=== PATIENT | male | born 1970 | race Hispanic/Latino ===

== ENCOUNTER 2024-10-24 15:05 | Emergency (ER) | payer OTHER ==
[2024-10-24] MEDS ORDERED: ONDANSETRON 4 MG/2 ML VIAL ONE (15:33)
[2024-10-24] MEDS ORDERED: FAMOTIDINE 20 MG/2 ML VIAL IV ONE (15:33)
[2024-10-24] MEDS ORDERED: NA CHLORIDE 0.9% 1,000 ML ONE (15:33)
[2024-10-24 15:50] LABS: Absolute Lymphocytes (CBC) 0.3 K/uL (0.7-4.9); Absolute Monocytes 0.3 K/uL (0.1-1.3); Absolute Neutrophil 7.8 K/uL (1.8-8.0); Basophils % 0.2 % (0-1.3); Eosinophils % 0.1 % (0-4.4); Hematocrit 45.8 % (39.6-49.0); Lymphocytes % 3.3 % (15.3-44.8); MCH 30.7 pg (27.0-35.0); MCV 87.9 fL (80-100); MPV 7.4 fL (7.6-11.3); Monocytes % 3.9 % (3.3-12.3); Neutrophils % 92.5 % (41.7-73.7); Platelets 228 thou/uL (152-406); RBC Red Blood Cell Count 5.21 M/uL (4.33-5.43); Red Cell Distribution Width 13.6 % (12.1-15.2)
[2024-10-24 16:02] LABS: Albumin 4.1 g/dL (3.4-5.0); Albumin/Globulin Ratio 1.1 (1.1-1.8); Bilirubin Total 2.8 mg/dL (0.2-1.0); Globulin 3.6 g/dL (2.3-3.5); Protein, Total 7.7 g/dL (6.4-8.2); Troponin High Sensitivity 5.9 pg/mL (<58.9)
[2024-10-24 16:50] LABS: Platelet Estimate ADEQ; White Blood Cell Scan OK (OK)
[2024-10-24 16:51] LABS: Blood Morphology Comment NOT SEEN (NOT SEEN)
--- NOTE | 2024-10-24 16:52 | RAD REPORT ---
EXAMINATION: Abdomen Pelvis W Contrast CLINICAL INDICATION: Male, 54 years old.ABD PAIN TECHNIQUE: CT abdomen and pelvis was performed, after the administration of IV contrast, as per [facility]. Axial, sagittal and coronal reconstructions were obtained. One or more of the following dose reduction techniques were used: Automated exposure control, adjustment of the mA and/o r kV according to patient size, and/or iterative reconstruction. Unless otherwise specified, incidental findings do not require dedicated imaging follow-up. [id number]. COMPARISON: No prior exam. FINDINGS: LOWER CHEST: No acute process identified.No significant pericardial effusion. Mild circumferential th ickening of the distal esophagus which could reflect esophagitis. UPPER GI: No significant abnormality. LIVER: Benign appearing low density liver lesions. No suspicious mass. GALLBLADDER/BILE DUCTS: Cholelithiasis without CT evidence of acute cholecystitis.? PANCREAS: No mass, ductal dilation, or [place]-pancreatic fluid. SPLEEN: Unremarkable. ADRENALS: No adrenal masses. KIDNEYS AND URETERS: No hydronephrosis.No suspicious renal mass.No renal calculi. ABDOMINAL AORTA AND OTHER VESSELS: Normal caliber aorta and IVC. PERITONEUM: No abnormal free fluid. No free air. LYMPH NODES: No pathologic lymphadenopathy. ABDOMINAL WALL: Fat containing inguinal hernias. SMALL BOWEL/COLON: Fluid filled segments of small bowel noted. Long segment small bowel wall thickeni ng and hyperenhancement with interspersed fluid.Normal appendix. URINARY BLADDER: Underdistended but grossly unremarkable. REPRODUCTIVE ORGANS: No pathologic process. MUSCULOSKELETAL: Multilevel degenerative changes in the spine. No acute fracture. ADDITIONAL FINDINGS: None. IMPRESSION: Long segment of mild small bowel wall thickening and hyperenhancement without significant mesenteric edema concerning for a mild enteritis with differential to include infectious and inflammatory etiologies. No appendicitis. Cholelithiasis. No CT evidence of acute cholecystitis.
[2024-10-24] MEDS ORDERED: MORPHINE 4 MG/ML SYR ONE (17:00)
--- NOTE | 2024-10-24 17:56 | EDPHYS ---
Physician Documentation [facility] Name: Lake Fenton Age: 54 yrs Sex: Male : 1970 Arrival Date: 10/24/2024 Time: 15:05 Bed Treatment Private MD: ED Physician Chato Snyder HPI: 10/24 16:49 This 54 yrs old Male presents to ER via Ambulatory with complaints of ms3 Abdominal Pain, Vomiting. 16:49 54-year-old male with past medical history of GERD presents to the emergency department ms3 for GERD "flare" that began at 4 AM. Patient states his pain is located in the epigastric region. Patient endorses nausea, vomiting, diaphoresis. Patient denies chest pain, shortness of breath, headache. Patient states his discomfort is a 7/10.. Historical: - Allergies: 15:45 No Known Allergies; iw - Home Meds: 15:45 Pepcid 40 mg Oral tablet [Active]; iw - PMHx: 15:45 GERD; iw - Immunization history:: Adult Immunizations not up to date. - Infectious Disease History:: Denies. - Social history:: Smoking status: Patient denies any tobacco usage or history of. ROS: 16:49 Constitutional: Negative for fever, and chills. Cardiovascular: Negative for chest ms3 pain, and palpitations. Respiratory: Negative for shortness of breath, cough, wheezing, and pleuritic chest pain, 16:49 MS/Extremity: Negative for injury and deformity, Skin: Negative for injury, rash, and discoloration, 16:49 Abdomen/GI: Positive for abdominal pain, nausea and vomiting, Exam: 16:49 Constitutional: This is a well developed, well nourished patient who is awake, alert, ms3 and in no acute distress. Cardiovascular: Regular rate and rhythm with a normal S1 and S2. No gallops, murmurs, or rubs. Normal PMI, no JVD. No pulse deficits. Respiratory: Lungs have equal breath sounds bilaterally, clear to auscultation and percussion. No rales, rhonchi or wheezes noted. No increased work of breathing, no retractions or nasal flaring. 16:49 Abdomen/GI: Inspection: abdomen appears normal, Bowel sounds: normal, Palpation: moderate abdominal tenderness, 16:59 ECG was reviewed by the Attending Physician. ms3 Vital Signs: 15:45 BP 148 / 81; Pulse 84; Resp 16; Temp 98.5; Pulse Ox 100% on R/A; Weight 79.38 kg; iw Height 5 ft. 8 in. ; Pain 7/10; 15:45 Body Mass Index 26.61 (79.38 kg, 172.72 cm) iw 15:45 Pain Scale: Adult iw MDM: 15:20 Medical Screening Exam initiated ms3 16:49 Differential diagnosis: Nonspecific abd pain, gastritis, cholecystitis, pancreatitis, ms3 viral gastroenteritis. 19:14 Data reviewed: vital signs, nurses notes, lab test result(s), EKG, radiologic studies, ms3 and as a result, I will discharge patient. I considered the following discharge prescriptions or medication management in the emergency department Medications were administered in the Emergency Department. See MAR. Independent interpretation of the following test(s) in the Emergency Department EKG: See my EKG interpretation above. Counseling: I had a detailed discussion with the patient and/or guardian regarding the historical points, exam findings, and any diagnostic results supporting the discharge/admit diagnosis, lab results, radiology results, the need for outpatient follow up, to return to the emergency department if symptoms worsen or persist or if there are any questions or concerns that arise at home. Special discussion: Based on the patient's Hx, exam, and Dx evaluation, there is no indication for emergent surgery or inpatient Tx. It is understood by the patient/guardian that if the Sx's persist or worsen they need to return immediately for re-evaluation. ED course: Discussed labs and imaging with patient. Discussed obtaining ultrasound with patient and his family. Patient declines ultrasound at this time. Patient to follow-up with primary care physician in 2 to 3 days. Patient understands and agrees with plan. All questions were answered. Return precautions discussed include worsening symptoms, or any other concerns.. 10/24 15:20 Order name: CBC with Diff; Complete Time: 17:00 ms3 10/24 15:20 Order name: CMP; Complete Time: 16:48 ms3 10/24 15:20 Order name: Lipase; Complete Time: 16:48 ms3 10/24 15:20 Order name: Troponin High Sensitivity; Complete Time: 16:48 ms3 10/24 16:52 Order name: CBC Smear Scan; Complete Time: 17:00 EDMS 10/24 15:20 Order name: CT Abd/Pelvis - IV Contrast Only; Complete Time: 17:00 ms3 10/24 15:20 Order name: EKG; Complete Time: 15:21 ms3 10/24 15:20 Order name: IV Saline Lock; Complete Time: 15:38 ms3 10/24 15:20 Order name: Labs collected and sent; Complete Time: 15:38 ms3 10/24 15:20 Order name: EKG - Nurse/Tech; Complete Time: 15:46 ms3 EC:59 Rate is 82 beats/min. Rhythm is regular. QRS [place] is Normal. [place] interval is normal. QRS ms3 interval is normal. Clinical impression: Normal ECG. Interpreted by me. Reviewed by me. Administered Medications: 15:38 Drug: Famotidine IVP 20 mg IVP once; dilute with 10 mL 0.9% NaCl; give over 2 minutes iw Route: IVP; Site: left antecubital; 15:38 Drug: Ondansetron IVP 4 mg IVP once; over 2 minutes Route: IVP; Site: left antecubital; iw 15:38 Drug: NS 0.9% IV 1000 ml IV at 1 bolus Per protocol; to be given as a bolus over 60 iw minutes Route: IV; Rate: 1 bolus; Site: left antecubital; 17:00 Follow up: IV Status: Completed infusion iw 17:08 Drug: morphine IVP or IV 4 mg IVP once over 4 mins Route: IVP; Infused Over: 4 mins; iw Site: left antecubital; 17:30 Follow up: Response: No adverse reaction; Pain is decreased iw Disposition Summary: 10/24/24 17:56 Discharge Ordered Notes: Location: Home ms3 Condition: Stable ms3 Diagnosis - Elevated total bilirubin ms3 - Upper abdominal pain, unspecified ms3 Followup: ms3 - With: Private Physician - When: 2 - 3 days - Reason: Recheck today's complaints Discharge Instructions: - Discharge Summary Sheet ms3 - Abdominal Pain, Adult ms3 Forms: - Medication Reconciliation Form ms3 - Antibiotic Education ms3 - Prescription Opioid Use ms3 - Patient Portal Instructions ms3 - Leadership Thank You Letter ms3 Prescriptions: - ondansetron 4 mg Oral Tablet,disintegrating - take 1 tablet ORAL route every 8 hours as needed for nausea and vomiting; 15 ms3 tablet; Refills: 0, Product Selection Permitted - Pepcid 20 mg Oral Tablet - take 1 tablet ORAL route every 12 hours for 5 days; 10 tablet; Refills: 0, ms3 Product Selection Permitted Signatures: Melissa Good, RN RN iw Chato Snyder, DO ms3
--- NOTE | 2024-10-24 17:56 | ER ---
Nurse's Notes [facility] Name: [place] Fenton Age: 54 yrs Sex: Male : 1970 Arrival Date: 10/24/2024 Time: 15:05 Bed Treatment Private MD: Diagnosis: Elevated total bilirubin;Upper abdominal pain, unspecified Presentation: 10/24 15:28 Chief complaint: Patient states: n/v, abd pain since this morning. Coronavirus screen: iw At this time, the client does not indicate any symptoms associated with coronavirus-19. Ebola Screen: No symptoms or risks identified at this time. Initial Sepsis Screen: Does the patient meet any 2 criteria? No. Patient's initial sepsis screen is negative. Does the patient have a suspected source of infection? No. Patient's initial sepsis screen is negative. Risk Assessment: Do you want to hurt yourself or someone else? Patient reports no desire to harm self or others. Onset of symptoms was October 24, 2024. 15:28 Method Of Arrival: Ambulatory iw 15:28 Acuity: VON 3 iw Triage Assessment: 15:30 General: Appears in no apparent distress. Behavior is calm, cooperative. GI: Abdomen is iw non-distended. Historical: - Allergies: 15:45 No Known Allergies; iw - Home Meds: 15:45 Pepcid 40 mg Oral tablet [Active]; iw - PMHx: 15:45 GERD; iw - Immunization history:: Adult Immunizations not up to date. - Infectious Disease History:: Denies. - Social history:: Smoking status: Patient denies any tobacco usage or history of. Screenin:20 [facility] ED Fall Risk Assessment (Adult) History of falling in the last 3 months, iw including since admission No falls in past 3 months (0 pts) Confusion or Disorientation No (0 pts) Intoxicated or Sedated No (0 pts) Impaired Gait No (0 pts) Mobility Assist Device Used No (0 pt) Altered Elimination No (0 pt) Score/Fall Risk Level 0 - 2 = Low Risk Oriented to surroundings, Maintained a safe environment. Abuse screen: Denies threats or abuse. Denies injuries from another. Nutritional screening: No deficits noted. Tuberculosis screening: No symptoms or risk factors identified. Assessment: 15:30 General: Appears in no apparent distress. uncomfortable. Pain: Complains of pain in iw abdomen. Neuro: Level of Consciousness is awake, alert, obeys commands, Oriented to person, place, situation. Respiratory: Respiratory effort is even, unlabored, Respiratory pattern is regular, symmetrical. GI: Abdomen is non-distended, Abd is soft X 4 quads. Vital Signs: 15:45 BP 148 / 81; Pulse 84; Resp 16; Temp 98.5; Pulse Ox 100% on R/A; Weight 79.38 kg; iw Height 5 ft. 8 in. ; Pain 7/10; 15:45 Body Mass Index 26.61 (79.38 kg, 172.72 cm) iw 15:45 Pain Scale: Adult iw ED Course: 15:08 Patient arrived in ED. im 15:08 Chato Snyder DO is Attending Physician. ms3 15:29 Triage completed. iw 15:29 Initial lab(s) drawn, by ED staff, sent to lab. Inserted saline lock: 20 gauge in left iw antecubital area, using aseptic technique. Blood collected. Flushed with 10 mL NS. 15:38 Melissa Layton, RN is Primary Nurse. iw 15:46 Troponin High Sensitivity Sent. bc6 15:46 CBC with Diff Sent. bc6 15:46 CMP Sent. bc6 15:46 Lipase Sent. bc6 16:40 CT Abd/Pelvis - IV Contrast Only In Process Unspecified. EDMS Administered Medications: 15:38 Drug: Famotidine IVP 20 mg IVP once; dilute with 10 mL 0.9% NaCl; give over 2 minutes iw Route: IVP; Site: left antecubital; 15:38 Drug: Ondansetron IVP 4 mg IVP once; over 2 minutes Route: IVP; Site: left antecubital; iw 15:38 Drug: NS 0.9% IV 1000 ml IV at 1 bolus Per protocol; to be given as a bolus over 60 iw minutes Route: IV; Rate: 1 bolus; Site: left antecubital; 17:00 Follow up: IV Status: Completed infusion iw 17:08 Drug: morphine IVP or IV 4 mg IVP once over 4 mins Route: IVP; Infused Over: 4 mins; iw Site: left antecubital; 17:30 Follow up: Response: No adverse reaction; Pain is decreased iw Outcome: 17:56 Discharge ordered by . ms3 18:23 Discharged to home ambulatory, iw 18:23 Condition: good 18:23 Discharge instructions given to patient, family, Instructed on discharge instructions, follow up and referral plans. Demonstrated understanding of instructions, follow-up care, medications, Prescriptions given X 2, 18:24 Patient left the ED. iw Signatures: Dispatcher [employer] Melissa Israel RN RN iw Sims, Marcus, DO DO ms3 Bee Cardona bc6 Haley Loco
[2024-10-25 07:02] VITALS: BP 148/81; TEMP 98.5; O2SAT 100
--- NOTE | 2024-10-25 12:35 | EKG ---
Test Date: 2024-10-24 Test Time: 15:37:13 Records Management Technician: NICOLE MEASUREMENT RESULTS: Intervals: Rate: 82 FL: 124 QRSD: 88 QT: 398 QTc: 464 [place]: P: 68 FL: 124 QRS: 60 T: 38 INTERPRETIVE STATEMENTS: Normal sinus rhythm Normal ECG No previous ECG available for comparison Electronically Signed On 10-25-24 12:34:19 CDT by Carrington Fuentes
== END 2024-10-24 18:24 | disposition home or self-care (01) ==
LOC: ER 15:05
DX: E80.7 Disorder of bilirubin metabolism, unspecified (principal); R11.2 Nausea with vomiting, unspecified
CPT/HCPCS: 85025; 36415; 84484; 83690; 80053; 74177; Q9967; J2405; J7030; 93005